=== PATIENT | female | born 1940 | race Caucasian/White ===

== ENCOUNTER 2017-04-22 07:28 | Outpatient (CLI) | payer MEDICARE, BC ==
--- NOTE | 2017-04-22 10:51 | PET ---
PET BRAIN IMAGING: HISTORY: Evaluate for Alzheimer's disease. Early onset. COMPARISON: None. TECHNIQUE: PET scanning with CT attenuation correction is performed from the base of the brain to the proximal t highs following the intravenous administration of F18-FDG. FINDINGS: There is decreased FDG localization involving the cerebrum, with areas of sparing in the left and rig ht precentral gyrus, as well as the left and right occipital lobes. The distribution of decreased FDG avidity is suspicious for Alzheimer's disease. IMPRESSION: PET imaging evidence for Alzheimer's disease. POS: JON
== END 2017-04-22 07:29 | disposition home or self-care (01) ==
LOC: PET 07:28
PROVIDERS: ATTEND Psychiatry & Neurology Neurology
DX: G30.0 Alzheimer's disease with early onset (principal)
CPT/HCPCS: 78608; A9552

== ENCOUNTER 2019-05-19 13:42 | Emergency (ER) | payer MEDICARE, BC ==
[2019-05-19 14:28] LABS: Bilirubin Negative (Negative); Blood, Urine Negative (Negative); Clarity Clear (Clear); Glucose, Urine (Dipstick) Normal (Negative); Leukocyte Negative Leu/uL (Negative); Nitrite Negative (Negative); Protein, Urine (Dipstick) 10 mg/dL (Neg-Trace); Urobilinogen Normal mg/dL (Less than 2)
[2019-05-19] MEDS ORDERED: Ketorolac Tromethamine 30 MG/ML VIAL ONE (14:46)
--- NOTE | 2019-05-19 15:08 | RAD ---
Exam: 3 views sacrum HISTORY: Pain x2 days FINDINGS: Sacral alar obscured by bowel gas. Grossly no sacral or bony pelvic abnormality. There is m ild bone demineralization. IMPRESSION: Limited evaluation due to bony mineralization and overlying bowel gas. Grossly no abnormality.
--- NOTE | 2019-05-19 15:12 | RAD ---
Exam: 3 views lumbar spine HISTORY: Low back pain x2 days FINDINGS: Mild bony mineralization. 5 lumbar type vertebra. Lumbar spine vertebral body height is maintained. No fracture. Vacuum disc ph enomenon in the distal thoracic spine Vacuum disc phenomenon phenomenon in the L4-L5 level. There are hypertrophic changes of posterior alejandra ments at L4-L5 and L5-S1. Moderate degenerative change in the L3-L4 level. IMPRESSION: Changes in the lower lumbar spine. No fracture. MRI if clinically warranted.
== END 2019-05-19 15:22 | disposition home or self-care (01) ==
LOC: ERS 13:42
DX: M54.5 Low back pain (principal); K59.00 Constipation, unspecified; I10 Essential (primary) hypertension; F03.90 Unspecified dementia, unspecified severity, without behavioral disturbance, psychotic disturbance, mood disturbance, and anxiety; Z79.82 Long term (current) use of aspirin; Z79.899 Other long term (current) drug therapy
CPT/HCPCS: 72100; 72220; 81003; 94760; J1885

== ENCOUNTER 2019-09-21 17:37 | Observation (INO) | payer MEDICARE, BC ==
[2019-09-21 19:27] LABS: #Basophils 0.1 thou/uL (0.0-0.2); #Eosinphils 0.2 thou/uL (0.0-0.7); #Lymphocytes 1.2 thou/uL (1.20-3.40); #Monocytes 1.1 thou/uL (0.11-0.59); #Neutrophils 5.9 thou/uL (1.40-6.50); %Basophils 0.7 % (0.0-1.0); %Eosinophils 2.5 % (0.0-10.0); %Lymphocytes 14.5 % (21.0-51.0); %Monocytes 12.6 % (0.0-10.0); %Neutrophils 69.8 % (42.0-75.0); Hemoglobin 11.4 g/dL (12.0-16.0); Mean Corpuscular HGB CONC 33.3 g/dL (32.0-36.0); Mean Corpuscular Hemoglobin 30.2 pg (27.0-31.0); Mean Corpuscular Volume 90.8 fL (78.0-98.0); Mean Platelet Volume 7.3 fL (7.4-10.4); Platelet Count 292 thou/uL (130-400); Red Blood Cell (RBC) Count 3.77 mill/uL (4.20-5.40); White Blood Cell (WBC) Count 8.5 thou/uL (4.8-10.8)
[2019-09-21 20:00] LABS: ALT (SGPT) 14 U/L (8-55); AST (SGOT) 20 U/L (5-34); Albumin 3.7 g/dL (3.4-4.8); Alkaline Phosphatase 71 U/L (40-110); Anion Gap 13 mmol/L (10-20); BUN (Urea Nitrogen) 15 mg/dL (9.8-20.1); Bilirubin, Total 0.3 mg/dL (0.2-1.2); Calc. Creatinine Clearance 0 mL/min (70-130); Calcium 9.1 mg/dL (7.8-10.44); Carbon Dioxide 28 mmol/L (23-31); Chloride 104 mmol/L (98-107); Estimated GFR-MDRD 48; Globulin 2.7 g/dL (2.4-3.5); Glucose 91 mg/dL (83-110); Potassium 3.4 mmol/L (3.5-5.1); Protein, Total 6.4 g/dL (6.0-8.3); Sodium 142 mmol/L (136-145)
--- NOTE | 2019-09-21 20:05 | RAD ---
PORTABLE CHEST: 09/21/19 HISTORY: Syncope, back pain. COMPARISON: 09/19/19 exam. Heart size appears borderline enlarged. The aorta is tortuous with atherosclerotic change. Lungs are clear of any infiltrative process. No signs of fracture. IMPRESSION: No active intrathoracic disease. POS: [facility]
--- NOTE | 2019-09-21 20:10 | CT ---
CT OF BRAIN PERFORMED WITHOUT CONTRAST ENHANCEMENT: 09/21/19 HISTORY: Altered mental status. There is generalized ventricular and sulcal prominence with decreased attenuation to the periventricu lar white matter consistent with chronic white matter change. There are no signs of intracerebral hem orrhage or extra-axial fluid collections. The mastoid air cells and visualized sinuses are clear. IMPRESSION: No acute intracranial abnormalities. POS: [facility]
[2019-09-21 21:59] LABS: Bacteria/HPF None Seen HPF (None Seen); Bilirubin Negative (Negative); Blood, Urine Trace (Negative); Clarity Turbid (Clear); Glucose, Urine (Dipstick) Normal (Negative); Leukocyte Negative Leu/uL (Negative); Mucous/LPF Rare LPF (<2+); Nitrite Negative (Negative); Protein, Urine (Dipstick) 30 mg/dL (Neg-Trace); RBC/HPF 0-3 HPF (0-3); Squamous Epithelial 0-3 HPF (0-3); Urobilinogen 3 mg/dL (Less than 2)
[2019-09-22] MEDS ORDERED: Acetaminophen 325 MG TAB PO PRN (00:04)
[2019-09-22 00:11] LABS: Troponin I 0.018 ng/mL (< 0.028)
--- NOTE | 2019-09-22 01:20 | HP ---
PRIMARY CARE PHYSICIAN: [facility] DIRECTOR: Sin Devlin MD CHIEF COMPLAINT: Altered mental status. HISTORY OF PRESENT ILLNESS: The H and P was taken from the patient's MPOA and daughter, Kelly via telephone secondary to patient's history of dementia. The patient is a 78-year-old female with past medical history significant for Alzheimer dementia, COPD, hypertension, hyperlipidemia, anxiety, and depression, who presents to the ER for the above complaint. The daughter reports that the patient appeared sluggish this afternoon stating that she was slumped over in her chair, not very active, and seemed to be more confused at times. The patient did not complain of any chest pain or SOB. She has been afebrile. No signs of abdominal pain or diarrhea. Blood pressure checked showed the SBP in the 80s and 90s, so she decided to call EMS. The daughter also reports that the patient had similar symptoms two days ago, in which the patient was actually taken to the [facility]. The patient had a full workup including labs, CT of the chest , UA, and EKG. She was also tested for COVID, which came back negative. The patient was discharged home with dehydration. The daughter reports that the patient did well for the next several days until this afternoon when she became sluggish and confused. When EMS arrived on the scene, the patient was normotensive with a heart rate of 56 with a regular respirations and she was afebrile. At the ER, vital signs were stable. Normal blood pressure, normal heart rate, normal respirations, afebrile. CT of the brain was negative for any acute process. Chest x-ray was negative for any acute process. Initial troponin was 0.011. EKG showed sinus kevin with PACs 47 beats per minute. Second EKG showed sinus arrhythmia, sinus kevin, heart rate of 59. No ST elevations. CMP and CBC were unremarkable. UA was unremarkable as well. The patient was given 1 L of normal saline. PAST MEDICAL HISTORY: 1. Alzheimer's. 2. COPD. 3. Hypertension. 4. Hyperlipidemia. 5. Anxiety and depression. PAST SURGICAL HISTORY: 1. Hysterectomy. 2. Appendectomy. SOCIAL HISTORY: The patient lives at home alone with 24 hour total care. She ambulates without any assistive devices, although it is recommended that she use a cane or roll walker. She was a former smoker, who quit in 2012. No alcohol intake. No illicit drug use. FAMILY HISTORY: Noncontributory for cardiac disease. ALLERGIES: CODEINE. HOME MEDICATIONS: Unable to confirm home medications at bedside or with daughter via telephone. REVIEW OF SYSTEMS: All review of systems are negative unless otherwise stated in the HPI. PHYSICAL EXAMINATION: VITAL SIGNS: Temperature 98.2, blood pressure 131/67, heart rate 62, respirations 18, and 97% on room air. 0/10 pain. CONSTITUTIONAL: The patient is alert and oriented to self, which is baseline per her daughter. She is nontoxic in appearance, in no acute distress. HEAD: Atraumatic and normocephalic. EYES: PERRLA. Extraocular muscles intact. ENT: Nares patent bilaterally. TMs intact bilaterally. Oropharynx is clear. Uvula midline. Dry mucous membranes. No oral lesions. NECK: Supple. Trachea is midline. No cervical tenderness. No cervical lymphadenopathy. No JVD. RESPIRATORY: Respirations are even and nonlabored. Clear to auscultation. No rhonchi, wheezes, or rales. HEART: Sinus bradycardia. 2/6 murmur. No rubs or gallops. ABDOMEN: Soft and nontender. Active bowel sounds. No guarding. No rigidity. No rebound tenderness. No abdominal bruit auscultated. BACK: No central spinous tenderness. No CVA tenderness. UPPER EXTREMITIES: Limited range of motion. Strength normal. Sensation intact. Palpable radial pulses. LOWER EXTREMITIES: Range of motion normal. Strength normal. Sensation intact. Palpable pedal pulses. No swelling. NEURO: The patient is alert and oriented to person. She is confused, which is baseline per her caregiver and daughter. She moves all extremities well. No focal deficits. Cranial nerves 2 through 12 intact. PSYCH: Alert and oriented to person. Normal affect. LABS AND DIAGNOSTICS: CT of the brain negative for any acute process. Chest x- ray negative for any acute process. Troponin 0.011. EKG; sinus kevin, PACs, and heart rate of 47. Sodium was 142, potassium 3.4, chloride 104, carbon dioxide 28, BUN 15, creatinine 1.10, glucose 91, calcium 9.1, total bilirubin 0.3, AST 20, ALT 14, alkaline phosphatase 71, and albumin 3.7. WBC 8.5, hemoglobin 11.4, hematocrit 34.2, and platelets 292. UA; 4 to 6 wbc's, trace blood, and 30 protein. IMPRESSION AND PLAN: 1. Altered mental status. We will admit the patient to the telemetry floor observation status. Expected length of stay less than two midnights. Prior to arrival that the patient had a reported low systolic blood pressure in the 80s and was sluggish. Upon presentation to the ER, blood pressure normal. Heart rate sinus bradycardia, in the 40s and 50s. CT of the brain was negative. Chest x-ray negative for any acute process. Initial troponin 0.011. We will continue to trend troponins. We will check TSH, fasting lipid, and Mag level. We will consult Cardiology. We will repeat EKG in the a.m. 2. Bradycardia. The patient's EKG showed sinus kevin, sinus arrhythmia, heart rate in the 47s to 50s. The patient's certified coding specialist is Dr. Devlin. I could not find a recent echocardiogram in the computer. We will consult Cardiology to determine course of care. 3. Hypotension. Reported the patient's blood pressure was low prior to arrival, systolic blood pressure in the 80s and 90s. The patient received 1 L normal saline in the ER. Currently, the patient on exam was normotensive. We will hold lisinopril for now. We will monitor blood pressure through the night. 4. Alzheimer's. The patient has family perform ADLs. The patient is oriented to person, which is her baseline. We will restart the patient's home Donepezil when reconciled by nursing. 5. Chronic obstructive pulmonary disease. The patient was a former heavy smoker , quit in 2012. Chest x-ray was negative. The patient is in no acute respiratory distress. We will continue to monitor and we will add p.r.n. as necessary. 6. Sequential compression devices for deep venous thrombosis prophylaxis. No pharmaco deep venous thrombosis prophylaxis. No gastrointestinal prophylaxis. The patient is a DNAR and POA is her daughter, Kelly, [phone]. 7. Discussed this case with Dr. Mon. Job ID: [id number] MTDD
[2019-09-22 02:55] LABS: #Basophils 0.1 thou/uL (0.0-0.2); #Eosinphils 0.3 thou/uL (0.0-0.7); #Lymphocytes 1.8 thou/uL (1.20-3.40); #Monocytes 0.9 thou/uL (0.11-0.59); #Neutrophils 5.4 thou/uL (1.40-6.50); %Basophils 0.9 % (0.0-1.0); %Eosinophils 3.3 % (0.0-10.0); %Lymphocytes 21.1 % (21.0-51.0); %Monocytes 10.8 % (0.0-10.0); %Neutrophils 63.9 % (42.0-75.0); Hemoglobin 11.4 g/dL (12.0-16.0); Mean Corpuscular HGB CONC 34.8 g/dL (32.0-36.0); Mean Corpuscular Hemoglobin 31.6 pg (27.0-31.0); Mean Corpuscular Volume 90.7 fL (78.0-98.0); Mean Platelet Volume 7.6 fL (7.4-10.4); Platelet Count 269 thou/uL (130-400); RBC Distribution Width 11.9 % (11.5-14.5); Red Blood Cell (RBC) Count 3.61 mill/uL (4.20-5.40); White Blood Cell (WBC) Count 8.4 thou/uL (4.8-10.8)
[2019-09-22 03:30] LABS: Anion Gap 13 mmol/L (10-20); BUN (Urea Nitrogen) 12 mg/dL (9.8-20.1); Calc. Creatinine Clearance 42 mL/min (70-130); Calcium 8.7 mg/dL (7.8-10.44); Carbon Dioxide 26 mmol/L (23-31); Cardiac Risk 2.9 (Less than 4.5); Chloride 108 mmol/L (98-107); Cholesterol 132 mg/dl (< 200 Desired); Estimated GFR-MDRD 70; Glucose 91 mg/dL (83-110); HDL Cholesterol 46 mg/dL (>60 Neg Risk); LDL Cholesterol, Calculated 74 mg/dL; Sodium 144 mmol/L (136-145); Triglycerides 61 mg/dL (Less than 150)
[2019-09-22 03:32] LABS: Potassium 2.9 mmol/L (3.5-5.1)
[2019-09-22] MEDS ORDERED: Potassium Chloride 20 MEQ TAB PO SCH ×2 (04:00→12:30)
[2019-09-22] MEDS: Aspirin 81 mg Enteric Coated Tablet PO SCH (08:22)
--- NOTE | 2019-09-22 09:51 | PDOC.HOSPP ---
- Subjective Encounter Date: 09/22/19 Encounter Time: 16:00 Subjective: Patient seen and examined for syncope. No new complaints. No overnight events - Objective Vital Signs & Weight: Vital Signs (12 hours) Temp Pulse Resp BP BP Pulse Ox 09/22/19 08:22 145/78 H 09/22/19 07:00 98.2 F 65 17 182/83 H 93 L 09/22/19 03:34 97.6 F 59 L 20 182/81 H 93 L 09/22/19 02:37 94 L 09/22/19 01:45 98.7 F 57 L 18 175/84 H 94 L 09/22/19 01:03 98.7 F 57 L 18 175/84 H 94 L Weight Weight 102 lb 3.2 oz I&O: 09/21/19 09/22/19 09/23/19 06:59 06:59 06:59 Intake Total 230 Balance 230 Result Diagrams: 09/22/19 02:43 09/22/19 10:14 Additional Labs: Laboratory Tests 09/22/19 09/22/19 02:43 10:14 Potassium 2.9 L* Magnesium 1.5 L Radiology Reviewed by me: Yes (CXR - neg) EKG Reviewed by me: Yes (Tele SR) Hospitalist ROS - Review of Systems ROS unobtainable: due to mental status - Medication Medications: Active Medications Generic Name Dose Route Start Last Admin Trade Name Freq PRN Reason Stop Dose Admin Aspirin 81 mg 09/22/19 09:00 09/22/19 08:22 Ecotrin PO 81 mg DAILY KEVIN Administration Sodium Chloride 10 ml 09/22/19 09:00 09/22/19 08:22 Flush - Normal Saline IVF 10 ml Q12HR KEVIN Administration - Exam General Appearance: NAD Neck: supple, no JVD, no thyromegaly, no lymphadenopathy Heart: RRR, no gallops, no rubs, normal peripheral pulses Respiratory: no wheezes, no rales Gastrointestinal: soft, non-tender, non-distended, normal bowel sounds Extremities: no cyanosis, no clubbing, no edema Extremities - other findings: no calf tenderness Neurological: no new deficit Hosp A/P - Plan DVT proph w/SCDs Toxic Metabolic Encephalopathy/Syncope - multifactorial Bradycardia Hypokalemia Hypomagnesemia HLD HTN Dementia Former smoker DJD Anxiety PLAN: Replace Potassium and Magnesium Await Cardio input Confirm home meds Low dose ASA Echo Cont Tele monitoring Recheck labs later today and in AM Monitor Orthostatic vitals
[2019-09-22] MEDS ORDERED: Lisinopril 10 MG TAB PO SCH (10:00)
[2019-09-22 10:50] LABS: Anion Gap 11 mmol/L (10-20); BUN (Urea Nitrogen) 10 mg/dL (9.8-20.1); Calc. Creatinine Clearance 45 mL/min (70-130); Calcium 9.2 mg/dL (7.8-10.44); Carbon Dioxide 31 mmol/L (23-31); Chloride 104 mmol/L (98-107); Estimated GFR-MDRD 75; Glucose 90 mg/dL (83-110); Magnesium 1.5 mg/dL (1.6-2.6); Potassium 3.5 mmol/L (3.5-5.1); Sodium 142 mmol/L (136-145)
[2019-09-22 11:33] LABS: Troponin I 0.028 ng/mL (< 0.028)
[2019-09-22] MEDS ORDERED: Magnesium Sulfate 4 GM in Sodium Chloride 0.9% 250 ML 250 ML IVPB SCH (12:30)
[2019-09-22 12:40] LABS: Phosphorus 2.9 mg/dL (2.3-4.7)
[2019-09-22] MEDS: Potassium Chloride 20 MEQ TAB PO SCH (16:54)
--- NOTE | 2019-09-22 17:13 | CON ---
DATE OF CONSULTATION: 09/22/2019 REASON FOR CONSULTATION: Bradycardia. HISTORY OF PRESENT ILLNESS: Ms. Rhoades is a 78-year-old white female, who comes to the hospital for altered mentation. She has Alzheimer disease and was brought in as she was sluggish and not responding. She had a similar episode about a week ago. She was taken to the [facility], and workup included negative CT of the chest, normal UA and EKG. She had a negative COVID test at that time as well. She was sent home with diagnosis of dehydration and given IV fluids. She was doing well until yesterday afternoon when she became confused. EMS arrived, and she was found to have normal blood pressure and a heart rate of 56, but she was still confused with no fevers and brought to the ER. Cardiology is being consulted as her heart rate has been anywhere from 47 to 59. During her monitoring with this bradycardia, she has been completely asymptomatic and actually even much more awake now. PAST MEDICAL HISTORY: 1. Alzheimer dementia. 2. COPD. 3. Hypertension. 4. Hyperlipidemia. 5. Anxiety and depression. PAST SURGICAL HISTORY: 1. Hysterectomy. 2. Appendectomy. SOCIAL HISTORY: She lives at home, but has 24-hour care at home. Former smoker, quit in 2012. No alcohol or drugs. FAMILY HISTORY: Noncontributory. ALLERGIES: CODEINE. OUTPATIENT MEDICATIONS: 1. Namenda 5 mg b.i.d. 2. Aricept 10 mg a day. 3. Zoloft 100 mg a day. 4. Zestril 10 mg a day. 5. Vitamin D3. 6. Seroquel 25 mg at bedtime. REVIEW OF SYSTEMS: A 12-point review of systems was done and was all negative unless stated in the history of present illness. PHYSICAL EXAMINATION: VITAL SIGNS: Temperature 98.1, pulse 59, respiratory rate 20, saturating 94% on room air, blood pressure 169/87. GENERAL: Awake, alert, and oriented to person, but not to place or time, in no distress. HEENT: Normocephalic and atraumatic. NECK: Supple. LUNGS: Clear. CARDIOVASCULAR: S1 and S2. No S3 or S4. There is a grade 2/6 systolic murmur in the right sternal border. ABDOMEN: Soft. Positive bowel sounds. EXTREMITIES: No edema. SKIN: Warm and dry. LABORATORY DATA: Laboratory work was reviewed. CBC remarkable only for hemoglobin of 11.4, hematocrit of 32, normal platelets, and normal white count. Chemistry with a potassium of 2.9 on arrival, up to 3.5 now. Rest of the CMP was normal. Magnesium was low at 1.5. Phosphorus was normal. Troponin was normal x3. BNP was 120. TSH was normal. Folate was 18. B12 was high at 1600. Triglycerides 61, cholesterol total of 132, LDL of 74, HDL of 46. UA was turbid with proteins, trace blood, 4 to 6 white cells, greater than 50 hyaline casts, but no bacteria. EKG was reviewed, sinus kevin. Telemetry has been reviewed. She has been sinus kevin with PACs, and she had a small run of nonsustained SVT versus atrial tachycardia. This was nonsustained, brief, and asymptomatic. CT of the brain showed no acute intracranial abnormalities. ASSESSMENT: 1. Sinus bradycardia, asymptomatic. 2. Nonsustained supraventricular tachycardia versus atrial tachycardia. Asymptomatic. 3. Altered mentation. 4. Alzheimer disease. PLAN: 1. With her sinus bradycardia, it will be prohibited to add any beta-blockers or calcium channel blockers to treat the nonsustained SVT/atrial tachycardia. On the other hand, this is asymptomatic and brief, so unlikely to be the cause of her altered mentation. 2. She does not have an indication for pacemaker at this time as she has not had any syncopal spells, and her heart rate was normal while she was still altered at home. So, her sinus kevin is unlikely to be the cause of her altered mentation. Thank you for letting us to participate in the care of your patient. We will get an echocardiogram. If this is unremarkable, we will sign off. Job ID: [id number]
[2019-09-22] MEDS ORDERED: Prevnar 13-Val Conj/PF 0.5 ML SYRINGE IM ONE (21:00)
[2019-09-23 05:04] LABS: Anion Gap 13 mmol/L (10-20); BUN (Urea Nitrogen) 11 mg/dL (9.8-20.1); Calc. Creatinine Clearance 45 mL/min (70-130); Calcium 9.2 mg/dL (7.8-10.44); Carbon Dioxide 26 mmol/L (23-31); Chloride 105 mmol/L (98-107); Estimated GFR-MDRD 75; Glucose 88 mg/dL (83-110); Magnesium 2.2 mg/dL (1.6-2.6); Potassium 3.5 mmol/L (3.5-5.1); Sodium 140 mmol/L (136-145)
[2019-09-23] MEDS: Potassium Chloride 20 MEQ TAB PO SCH ×3 (08:53→16:24)
[2019-09-23] MEDS: Aspirin 81 mg Enteric Coated Tablet PO SCH (08:53)
[2019-09-23] MEDS ORDERED: Lisinopril 10 MG TAB PO SCH (09:00)
--- NOTE | 2019-09-23 15:49 | PDOC.CPN ---
- Subjective Date: 09/23/19 Time: 15:43 Interval history: No new issues. More awake today. - Review of Systems General: denies: fever/chills, weight/appetite/sleep changes, night sweats, fatigue Respiratory: denies: cough, congestion, shortness of breath, exercise intolerance Cardiovascular: denies: chest pain, palpitation, edema, paroxysmal nocturnal dyspnea, orthopnea Gastrointestinal: denies: nausea, vomiting, diarrhea, constipation, abd pain, GI bleeding Musculoskeletal: denies: pain, tenderness, stiffness, swelling, arthritis/ arthralgias Neurological: denies: numbness, syncope, seizure, weakness - Objective Allergies/Adverse Reactions: Allergies Allergy/AdvReac Type Severity Reaction Status Date / Time codeine Allergy Verified 09/22/19 03:14 Visit Medications: Current Medications Acetaminophen (Tylenol) 650 mg PO Q4H PRN PRN Reason: Headache/Fever/Mild Pain (1-3) Aspirin (Ecotrin) 81 mg PO DAILY [facility] Last Admin: 09/23/19 08:53 Dose: 81 mg Potassium Chloride (K-Dur) 20 meq PO TID-WM [facility] Last Admin: 09/23/19 11:53 Dose: 20 meq Sodium Chloride (Flush - Normal Saline) 10 ml IVF Q12HR KEVIN Last Admin: 09/23/19 08:53 Dose: 10 ml Vital Signs & Weight: Vital Signs Temp Pulse Resp BP BP BP BP 09/23/19 15:27 98.5 F 61 16 150/70 H 09/23/19 11:56 98.3 F 68 16 120/59 L 09/23/19 08:35 98.2 F 63 16 154/76 H 164/82 H 164/77 H 09/23/19 04:47 97.7 F 61 18 179/86 H Pulse Ox 09/23/19 15:27 95 09/23/19 11:56 95 09/23/19 08:35 94 L 09/23/19 04:47 94 L Admit Weight 102 lb 3.2 oz Weight 102 lb 3.2 oz - Physical Exam General: no apparent distress HEENT: mucus membranes moist Neck: supple neck Cardiac: regular rate and rhythm, bradycardia Lungs: normal breath sounds Neuro: grossly intact Abdomen: active bowel sounds Extremities: 1+ LE edema Skin: clear Musculoskeletal: no pain - Labs Result Diagrams: 09/22/19 02:43 09/23/19 04:11 Troponin/CKMB Troponin I 0.028 ng/mL (< 0.028) 09/22/19 10:42 - Telemetry Sinus rhythms and dysrhythmias: sinus rhythm - Assessment/Plan Assessment/Plan: 1. Sinus bradycardia, asymptomatic. 2. Non sustained SVT, asymptomatic3. AMS, improving 4. Alzheimers PLAN: - CV stable. - Cannot do BB or CCB due to baseline bradycardia - Agree with replacing electrolytes. - Echo unremarkable. - From cardiac perspective may discharge at any time.
--- NOTE | 2019-09-23 19:07 | PDOC.HOSPP ---
- Subjective Encounter Date: 09/23/19 Encounter Time: 10:30 Subjective: Patient seen and examined for syncope. No CP/SOB. No new complaints. No overnight events - Objective Vital Signs & Weight: Vital Signs (12 hours) Temp Pulse Resp BP BP BP BP 09/23/19 15:27 98.5 F 61 16 150/70 H 09/23/19 11:56 98.3 F 68 16 120/59 L 09/23/19 08:35 98.2 F 63 16 154/76 H 164/82 H 164/77 H Pulse Ox 09/23/19 15:27 95 09/23/19 11:56 95 09/23/19 08:35 94 L Weight Admit Weight 102 lb 3.2 oz Weight 102 lb 3.2 oz I&O: 09/22/19 09/23/19 09/24/19 06:59 06:59 06:59 Intake Total 230 360 400 Output Total 240 275 Balance 230 120 125 Result Diagrams: 09/22/19 02:43 09/23/19 04:11 EKG Reviewed by me: Yes (Tele SB) Hospitalist ROS - Review of Systems Cardiovascular: denies: chest pain, palpitations, orthopnea, paroxysmal noc. dyspnea, edema, light headedness, other Gastrointestinal: denies: nausea, vomiting, abdominal pain, diarrhea, constipation, melena, hematochezia, other - Medication Medications: Active Medications Generic Name Dose Route Start Last Admin Trade Name Freq PRN Reason Stop Dose Admin Aspirin 81 mg 09/22/19 09:00 09/23/19 08:53 Ecotrin PO 81 mg DAILY KEVIN Administration Potassium Chloride 20 meq 09/22/19 17:00 09/23/19 16:24 K-Dur PO 20 meq TID-WM KEVIN Administration Sodium Chloride 10 ml 09/22/19 09:00 09/23/19 08:53 Flush - Normal Saline IVF 10 ml Q12HR KEVIN Administration - Exam General Appearance: NAD Heart: RRR, no gallops Respiratory: no wheezes, no ronchi Gastrointestinal: non-tender, non-distended, normal bowel sounds Extremities: no cyanosis, no clubbing Hosp A/P - Plan DVT proph w/SCDs Toxic Metabolic Encephalopathy/Syncope - multifactorial -improving Non sustained SVT -asymptomatic Bradycardia Hypokalemia Hypomagnesemia HLD HTN Dementia Former smoker DJD Anxiety PLAN: Replace Potassium Await Echo Resume Lisinopril Confirm home meds Cont ASA Resume selected home meds
[2019-09-23] MEDS: Lisinopril 10 MG TAB PO SCH (20:32)
[2019-09-23] MEDS: Cholecalciferol (Vitamin D3) 400 UNITS TAB PO SCH (20:32)
[2019-09-24] MEDS: Aspirin 81 mg Enteric Coated Tablet PO SCH (08:02)
[2019-09-24] MEDS: Potassium Chloride 20 MEQ TAB PO SCH ×2 (08:02→16:25)
[2019-09-24] MEDS: Donepezil HCl 10 MG TAB PO SCH (08:03)
--- NOTE | 2019-09-24 10:03 | PDOC.EVN ---
Event Note - Event Note Event Note: Daughter contact number [phone]
--- NOTE | 2019-09-24 10:46 | PDOC.HOSPP ---
- Subjective Encounter Date: 09/24/19 Encounter Time: 08:30 Subjective: Patient seen and examined for Bradycardia/Encephalopathy. No new complaints. No overnight events - Objective Vital Signs & Weight: Vital Signs (12 hours) Temp Pulse Resp BP Pulse Ox 09/24/19 07:25 98.7 F 69 18 142/87 H 93 L 09/24/19 03:59 99.5 F 89 20 119/57 L 97 09/24/19 00:00 55 L Weight Admit Weight 102 lb 3.2 oz Weight 95 lb 11.2 oz I&O: 09/23/19 09/24/19 09/25/19 06:59 06:59 06:59 Intake Total 360 520 Output Total 240 525 Balance 120 -5 Result Diagrams: 09/22/19 02:43 09/23/19 04:11 EKG Reviewed by me: Yes (Tele SB) Hospitalist ROS - Review of Systems Respiratory: denies: cough, dry, shortness of breath, hemoptysis, SOB with excertion, pleuritic pain, sputum, wheezing, other Cardiovascular: denies: chest pain, palpitations, orthopnea, paroxysmal noc. dyspnea, edema, light headedness, other - Medication Medications: Active Medications Generic Name Dose Route Start Last Admin Trade Name Freq PRN Reason Stop Dose Admin Aspirin 81 mg 09/22/19 09:00 09/24/19 08:02 Ecotrin PO 81 mg DAILY KEVIN Administration Cholecalciferol 400 units 09/23/19 21:00 09/23/19 20:32 Vitamin D PO 400 units HS KEVIN Administration Donepezil HCl 10 mg 09/24/19 09:00 09/24/19 08:03 Aricept PO 10 mg DAILY KEVIN Administration Lisinopril 10 mg 09/23/19 21:00 09/23/19 20:32 Zestril PO 10 mg HS KEVIN Administration Potassium Chloride 20 meq 09/22/19 17:00 09/24/19 08:02 K-Dur PO 20 meq TID-WM KEVIN Administration Quetiapine Fumarate 25 mg 09/23/19 21:00 09/23/19 20:32 Seroquel PO 25 mg HS KEVNI Administration Sertraline HCl 50 mg 09/24/19 09:00 09/24/19 08:02 Zoloft PO 50 mg DAILY KEVIN Administration Sodium Chloride 10 ml 09/22/19 09:00 09/24/19 08:03 Flush - Normal Saline IVF 10 ml Q12HR KEVIN Administration - Exam General Appearance: NAD Heart: RRR, no gallops Respiratory: no wheezes, no ronchi Gastrointestinal: non-tender, non-distended, normal bowel sounds Extremities: no cyanosis, no clubbing Neurological: no new deficit Hosp A/P - Plan DVT proph w/SCDs Toxic Metabolic Encephalopathy/Syncope - multifactorial -improving Non sustained SVT -asymptomatic -not a candidate for BB or CCB due to baseline bradycardia Bradycardia Hypokalemia/Hypomagnesemia -replaced HLD HTN Dementia Former smoker DJD Anxiety PLAN: Reduce Potassium to BID Cont ASA Stable for discharge Echo reviewed Cont Lisinopril Plan d/w daughter [phone] - Daughter not comfortable with patient staying alone Will consult CM for further options
--- NOTE | 2019-09-24 12:14 | EKG ---
Test Reason : Blood Pressure : / mmHG Vent. Rate : 059 BPM Atrial Rate : 059 BPM P-R Int : 154 ms QRS Dur : 070 ms QT Int : 426 ms P-R-T Axes : 071 -34 064 degrees QTc Int : 421 ms Sinus bradycardia with marked sinus arrhythmia Left axis deviation Anterior infarct , age undetermined Abnormal ECG Confirmed by LILLIANA STALLWORTH, GISSELLE ([id number]), editorial intern RUBEN ANDRADE ([id number]) on 09/24/2019 12:13:47 PM Referred By: Confirmed By:GISSELLE TIJERINA MD
--- NOTE | 2019-09-24 12:14 | EKG ---
Test Reason : Blood Pressure : / mmHG Vent. Rate : 047 BPM Atrial Rate : 047 BPM P-R Int : 168 ms QRS Dur : 076 ms QT Int : 474 ms P-R-T Axes : 113 -30 066 degrees QTc Int : 419 ms Sinus bradycardia with Premature supraventricular complexes Left axis deviation Pulmonary disease pattern Septal infarct , age undetermined Abnormal ECG Confirmed by LILLIANA STALLWORTH, GISSELLE ([id number]), photographic editor RUBEN ANDRADE ([id number]) on 09/24/2019 12:13:50 PM Referred By: Confirmed By:GISSELLE TIJERINA MD
--- NOTE | 2019-09-24 14:23 | PDOC.CPN ---
- Subjective Date: 09/24/19 Time: 14:22 Interval history: No new issues. No syncope, no angina. Still a little confused but alert. - Review of Systems ROS unobtainable: due to mental status - Objective Allergies/Adverse Reactions: Allergies Allergy/AdvReac Type Severity Reaction Status Date / Time codeine Allergy Verified 09/22/19 03:14 Visit Medications: Current Medications Acetaminophen (Tylenol) 650 mg PO Q4H PRN PRN Reason: Headache/Fever/Mild Pain (1-3) Aspirin (Ecotrin) 81 mg PO DAILY [facility] Last Admin: 09/24/19 08:02 Dose: 81 mg Cholecalciferol (Vitamin D) 400 units PO HS [facility] Last Admin: 09/23/19 20:32 Dose: 400 units Donepezil HCl (Aricept) 10 mg PO DAILY [facility] Last Admin: 09/24/19 08:03 Dose: 10 mg Lisinopril (Zestril) 10 mg PO [facility] Last Admin: 09/23/19 20:32 Dose: 10 mg Potassium Chloride (K-Dur) 20 meq PO BID-[facility] Quetiapine Fumarate (Seroquel) 25 mg PO HS [facility] Last Admin: 09/23/19 20:32 Dose: 25 mg Sertraline HCl (Zoloft) 50 mg PO DAILY [facility] Last Admin: 09/24/19 08:02 Dose: 50 mg Sodium Chloride (Flush - Normal Saline) 10 ml IVF Q12HR [facility] Last Admin: 09/24/19 08:03 Dose: 10 ml Vital Signs & Weight: Vital Signs Temp Pulse Resp BP Pulse Ox 09/24/19 11:17 99.1 F 75 16 144/88 H 93 L 09/24/19 07:25 98.7 F 69 18 142/87 H 93 L 09/24/19 03:59 99.5 F 89 20 119/57 L 97 Admit Weight 102 lb 3.2 oz Weight 95 lb 11.2 oz - Physical Exam General: no apparent distress HEENT: normocephaly Neck: supple neck Cardiac: regular rate and rhythm Lungs: normal breath sounds Neuro: grossly intact Abdomen: active bowel sounds Extremities: no edema Skin: clear Musculoskeletal: no pain - Labs Result Diagrams: 09/22/19 02:43 09/23/19 04:11 Troponin/CKMB Troponin I 0.028 ng/mL (< 0.028) 09/22/19 10:42 - Telemetry Sinus rhythms and dysrhythmias: sinus rhythm - Assessment/Plan Assessment/Plan: 1. Sinus bradycardia, asymptomatic. 2. Non sustained SVT, asymptomatic 3. AMS, improving 4. Alzheimers PLAN: - CV stable. - Cannot do BB or CCB due to baseline bradycardia - No new recs.
[2019-09-24] MEDS: Cholecalciferol (Vitamin D3) 400 UNITS TAB PO SCH (20:02)
[2019-09-24] MEDS: Lisinopril 10 MG TAB PO SCH (20:02)
[2019-09-25] MEDS: Potassium Chloride 20 MEQ TAB PO SCH ×2 (10:15→18:16)
[2019-09-25] MEDS: Donepezil HCl 10 MG TAB PO SCH (10:15)
[2019-09-25] MEDS: Aspirin 81 mg Enteric Coated Tablet PO SCH (10:15)
--- NOTE | 2019-09-25 13:36 | PDOC.CPN ---
- Subjective Date: 09/25/19 Time: 13:35 Interval history: No new issues. - Review of Systems ROS unobtainable: due to mental status - Objective Allergies/Adverse Reactions: Allergies Allergy/AdvReac Type Severity Reaction Status Date / Time codeine Allergy Verified 09/22/19 03:14 Visit Medications: Current Medications Acetaminophen (Tylenol) 650 mg PO Q4H PRN PRN Reason: Headache/Fever/Mild Pain (1-3) Aspirin (Ecotrin) 81 mg PO DAILY [facility] Last Admin: 09/25/19 10:15 Dose: 81 mg Cholecalciferol (Vitamin D) 400 units PO [facility] Last Admin: 09/24/19 20:02 Dose: 400 units Donepezil HCl (Aricept) 10 mg PO DAILY [facility] Last Admin: 09/25/19 10:15 Dose: 10 mg Lisinopril (Zestril) 10 mg PO [facility] Last Admin: 09/24/19 20:02 Dose: 10 mg Potassium Chloride (K-Dur) 20 meq PO BID-[facility] Last Admin: 09/25/19 10:15 Dose: 20 meq Quetiapine Fumarate (Seroquel) 25 mg PO [facility] Last Admin: 09/24/19 20:02 Dose: 25 mg Sertraline HCl (Zoloft) 50 mg PO DAILY [facility] Last Admin: 09/25/19 10:15 Dose: 50 mg Sodium Chloride (Flush - Normal Saline) 10 ml IVF Q12HR [facility] Last Admin: 09/25/19 10:15 Dose: 10 ml Vital Signs & Weight: Vital Signs Temp Pulse Resp BP BP Pulse Ox 09/25/19 11:35 97.9 F 74 22 H 121/75 91 L 09/25/19 10:00 98.1 F 77 22 H 118/65 94 L 09/25/19 04:00 98.7 F 73 16 125/71 92 L Admit Weight 102 lb 3.2 oz Weight 96 lb 14.4 oz - Physical Exam General: no apparent distress HEENT: mucus membranes moist Neck: supple neck Cardiac: regular rate and rhythm Lungs: normal breath sounds Neuro: no lateralizing findings Abdomen: active bowel sounds Extremities: no edema Skin: clear Musculoskeletal: no pain - Labs Result Diagrams: 09/22/19 02:43 09/23/19 04:11 Troponin/CKMB Troponin I 0.028 ng/mL (< 0.028) 09/22/19 10:42 - Telemetry Sinus rhythms and dysrhythmias: sinus rhythm - Assessment/Plan Assessment/Plan: 1. Sinus bradycardia, asymptomatic. Currently HR in the 70's. 2. Non sustained SVT, asymptomatic 3. AMS, improving 4. Alzheimers PLAN: - CV stable. - Cannot do BB or CCB due to baseline bradycardia - May discharge any time from cardiac perspective. - Will sign off. Please call with any questions. -
[2019-09-25 14:16] VITALS: BMI 18.9
[2019-09-25] MEDS: Cholecalciferol (Vitamin D3) 400 UNITS TAB PO SCH (20:28)
[2019-09-25] MEDS: Lisinopril 10 MG TAB PO SCH (20:28)
--- NOTE | 2019-09-25 23:32 | PDOC.HOSPP ---
- Subjective Encounter Date: 09/25/19 Encounter Time: 11:00 Subjective: Patient seen and examined for AMS. No new complaints. No overnight events - Objective Vital Signs & Weight: Vital Signs (12 hours) Temp Pulse Pulse Pulse Resp BP BP 09/25/19 19:37 98.7 F 79 16 09/25/19 14:52 97.5 F L 81 23 H 09/25/19 13:17 69 83 137/72 134/77 09/25/19 11:35 97.9 F 74 22 H BP Pulse Ox 09/25/19 19:37 165/74 H 92 L 09/25/19 14:52 156/77 H 93 L 09/25/19 13:17 09/25/19 11:35 121/75 91 L Weight Admit Weight 102 lb 3.2 oz Weight 96 lb 14.4 oz I&O: 09/24/19 09/25/19 09/26/19 06:59 06:59 06:59 Intake Total 520 600 240 Output Total 525 600 Balance -5 0 240 Result Diagrams: 09/22/19 02:43 09/23/19 04:11 EKG Reviewed by me: Yes (Tele SR) Hospitalist ROS - Review of Systems Respiratory: denies: cough, dry, shortness of breath, hemoptysis, SOB with excertion, pleuritic pain, sputum, wheezing, other Cardiovascular: denies: chest pain, palpitations, orthopnea, paroxysmal noc. dyspnea, edema, light headedness, other - Medication Medications: Active Medications Generic Name Dose Route Start Last Admin Trade Name Freq PRN Reason Stop Dose Admin Aspirin 81 mg 09/22/19 09:00 09/25/19 10:15 Ecotrin PO 81 mg DAILY KEVIN Administration Cholecalciferol 400 units 09/23/19 21:00 09/25/19 20:28 Vitamin D PO 400 units HS KEVIN Administration Donepezil HCl 10 mg 09/24/19 09:00 09/25/19 10:15 Aricept PO 10 mg DAILY KEVIN Administration Lisinopril 10 mg 09/23/19 21:00 09/25/19 20:28 Zestril PO 10 mg HS KEVIN Administration Potassium Chloride 20 meq 09/24/19 17:00 09/25/19 18:16 K-Dur PO 20 meq BID-[facility] KEVIN Administration Quetiapine Fumarate 25 mg 09/23/19 21:00 09/25/19 20:28 Seroquel PO 25 mg HS KEVIN Administration Sertraline HCl 50 mg 09/24/19 09:00 09/25/19 10:15 Zoloft PO 50 mg DAILY KEVIN Administration Sodium Chloride 10 ml 09/22/19 09:00 09/25/19 20:29 Flush - Normal Saline IVF 10 ml Q12HR KEVIN Administration - Exam General Appearance: NAD Heart: RRR, no gallops Respiratory: no wheezes, no ronchi Gastrointestinal: non-tender, non-distended, normal bowel sounds Extremities: no cyanosis, no clubbing Neurological: no new deficit Hosp A/P - Plan Toxic Metabolic Encephalopathy/Syncope - multifactorial -improving Non sustained SVT -asymptomatic -not a candidate for BB or CCB due to baseline bradycardia Bradycardia Hypokalemia/Hypomagnesemia -replaced HLD HTN Dementia Former smoker DJD Anxiety PLAN: Cont ASA Cont Lisinopril Await Rehab placement - Stable for discharge
[2019-09-26] MEDS: Aspirin 81 mg Enteric Coated Tablet PO SCH (08:30)
[2019-09-26] MEDS: Donepezil HCl 10 MG TAB PO SCH (08:30)
[2019-09-26] MEDS: Potassium Chloride 20 MEQ TAB PO SCH (08:31)
[2019-09-26 15:38] VITALS: BP 100/55; TEMP 97.6
--- NOTE | 2019-09-26 19:40 | DIS ---
DATE OF ADMISSION: 09/21/2019 DATE OF DISCHARGE: 09/26/2019 DISCHARGE DISPOSITION: Inpatient rehab. FOLLOWUP: 1. Follow up with primary care physician, Dr. Paz in 1 week. 2. Follow up with Cardiology, Dr. Peter, as scheduled. CODE STATUS: Do not resuscitate. DISCHARGE MEDICATIONS: Same as admission medication. 1. Aspirin 81 mg daily. 2. Zoloft 100 mg daily. 3. Seroquel 25 mg at bedtime. 4. Namenda 5 mg b.i.d. 5. Lisinopril 10 mg daily. 6. Aricept 10 mg daily. 7. Vitamin D3 10 mcg at bedtime. INPATIENT ASSISTANT COACH: Cardiology, Dr. Peter. The patient was seen and examined on the day of discharge. Denies any new complaints. No chest pain, shortness of breath, or palpitations reported. Please note that the patient was discharged on September 25, 2019. However, the patient was discharged to inpatient rehabilitation today. BRIEF HOSPITAL COURSE: The patient is a 78-year-old female with dementia, presented to the emergency room with altered mentation along with syncope. She was found to have sinus bradycardia with heart rate in 40s to 50s. The patient was evaluated by Cardiology. She was found to have electrolyte abnormalities with potassium of 2.9 and magnesium of 1.5, which were replaced. She also had several episodes of nonsustained supraventricular tachycardia. Please note that due to baseline bradycardia, she is not a candidate for beta-blockers or calcium channel akila. Due to progressive decline and family request, she was sent to inpatient rehabilitation. Please note that the patient was stable for discharge on the September 23; however, the rehab evaluation was pending. The patient appears stable for discharge. FINAL DIAGNOSES: 1. Toxic metabolic encephalopathy/syncope, multifactorial. 2. Nonsustained supraventricular tachycardia. The patient is asymptomatic and not a candidate for beta-blockers or calcium channel akila due to baseline bradycardia. 3. Chronic bradycardia. 4. Hypokalemia. 5. Hypomagnesemia. 6. Hypertension. 7. Hyperlipidemia. 8. Dementia. 9. Former smoker. 10. Anxiety. 11. Degenerative joint disease. Job ID: [id number]
== END 2019-09-26 16:22 ==
LOC: ERS 17:37 → 2NO 23:33
PROVIDERS: ADMIT Internal Medicine; ATTEND Internal Medicine
DX: G92 Toxic encephalopathy (principal); I47.1 Supraventricular tachycardia; R00.1 Bradycardia, unspecified; G30.9 Alzheimer's disease, unspecified; F02.80 Dementia in other diseases classified elsewhere, unspecified severity, without behavioral disturbance, psychotic disturbance, mood disturbance, and anxiety; J44.9 Chronic obstructive pulmonary disease, unspecified; I10 Essential (primary) hypertension; E78.5 Hyperlipidemia, unspecified; F41.9 Anxiety disorder, unspecified; F32.9 Major depressive disorder, single episode, unspecified; I95.9 Hypotension, unspecified; E87.6 Hypokalemia; E83.42 Hypomagnesemia; M19.90 Unspecified osteoarthritis, unspecified site; Z87.891 Personal history of nicotine dependence; Z79.82 Long term (current) use of aspirin; Z79.899 Other long term (current) drug therapy; Z88.5 Allergy status to narcotic agent; Z66 Do not resuscitate
CPT/HCPCS: 51701; 70450; 71045; 80048 ×3; 80053; 80061; 82607; 82746; 83735 ×2; 83880; 84100; 84443; 84484 ×4; 85025 ×2; 93005 ×2; 93306; 94760 ×2; 96361; 96365; 97116; 97139 ×6; 97530 ×3; 97535; 99285; G0378 ×6; 36415; 81003; 81015; 93010; 96360; J3475; J7050

== ENCOUNTER 2020-09-04 19:34 | Emergency (ER) | payer MEDICARE, BC | END 2020-09-04 23:22 | LOC: ERS 19:34 | DX: S00.03XA Contusion of scalp, initial encounter (principal); I10 Essential (primary) hypertension; E78.5 Hyperlipidemia, unspecified; D72.829 Elevated white blood cell count, unspecified; G30.9 Alzheimer's disease, unspecified; F02.80 Dementia in other diseases classified elsewhere, unspecified severity, without behavioral disturbance, psychotic disturbance, mood disturbance, and anxiety; G92 Toxic encephalopathy; R01.1 Cardiac murmur, unspecified; Z79.82 Long term (current) use of aspirin; Z79.899 Other long term (current) drug therapy; W18.30XA Fall on same level, unspecified, initial encounter | CPT/HCPCS: 70450; 72125; 93005 ==

== ENCOUNTER 2020-12-05 20:51 | Inpatient (IN) | payer MEDICARE, BC ==
[2020-12-05 21:55] LABS: Bacteria/HPF 4+ HPF (None Seen); Bilirubin 1+ (Negative); Blood, Urine 2+ (Negative); Clarity Turbid (Clear); Glucose, Urine (Dipstick) Normal (Negative); Ketone, Urine Negative (Negative); Leukocyte 250 Leu/uL (Negative); Nitrite Negative (Negative); Protein, Urine (Dipstick) 100 mg/dL (Neg-Trace); RBC/HPF 0-3 HPF (0-3); Specific Gravity, Urine 1.019 (1.002-1.036); Squamous Epithelial 0-3 HPF (0-3); pH, Urine 5.5 (5.0-9.0)
[2020-12-05] MEDS ORDERED: cefTRIAXone\\ROCEPHIN 2 GM VIAL ONE (22:35)
[2020-12-05 22:37] LABS: Hemoglobin 15.5 g/dL (12.0-16.0); Mean Corpuscular HGB CONC 31.7 g/dL (32.0-36.0); Mean Corpuscular Hemoglobin 29.9 pg (27.0-31.0); Mean Corpuscular Volume 94.5 fL (78.0-98.0); Mean Platelet Volume 8.6 fL (7.4-10.4); Platelet Count 212 thou/uL (130-400); RBC Distribution Width 12.7 % (11.5-14.5); Red Blood Cell (RBC) Count 5.19 mill/uL (4.20-5.40); White Blood Cell (WBC) Count 21.9 thou/uL (4.8-10.8)
[2020-12-05 22:45] LABS: ALT (SGPT) 26 U/L (8-55); AST (SGOT) 44 U/L (5-34); Albumin 4.2 g/dL (3.4-4.8); Alkaline Phosphatase 77 U/L (40-110); Anion Gap 22 mmol/L (10-20); BUN (Urea Nitrogen) 29 mg/dL (9.8-20.1); Bilirubin, Total 0.6 mg/dL (0.2-1.2); Calc. Creatinine Clearance 0 mL/min (70-130); Calcium 10.3 mg/dL (7.8-10.44); Carbon Dioxide 21 mmol/L (23-31); Chloride 104 mmol/L (98-107); Globulin 3.1 g/dL (2.4-3.5); Glucose 134 mg/dL (83-110); Potassium 4.6 mmol/L (3.5-5.1); Protein, Total 7.3 g/dL (5.8-8.1); Sodium 142 mmol/L (136-145)
[2020-12-05 22:52] LABS: Band 30 % (5-11); Lymphocytes 2 % (21-51); MDiff Complete? YES; Monocytes 7 % (0-10); Neutrophil 61 % (42-75)
[2020-12-06] MEDS ORDERED: Ondansetron PF 4 MG/2 ML Vial IVP PRN (00:23)
[2020-12-06] MEDS ORDERED: Acetaminophen 325 MG TAB PO PRN (00:23)
[2020-12-06] MEDS: Sodium Chloride 0.9% 1,000 ML IV SCH ×2 (01:48→16:22)
[2020-12-06] MEDS ORDERED: Cefepime 1 GM VIAL ONE (03:20)
[2020-12-06] MEDS: Cefepime 1 GM in Sodium Chloride 0.9% 100 ML IVPB SCH ×2 (03:25→16:22)
[2020-12-06 04:25] LABS: SARS-CoV-2 NAA Rapid Test Not Detected (NotDetected)
[2020-12-06 05:11] LABS: Hemoglobin 14.2 g/dL (12.0-16.0); Mean Corpuscular HGB CONC 31.2 g/dL (32.0-36.0); Mean Corpuscular Hemoglobin 29.6 pg (27.0-31.0); Mean Corpuscular Volume 94.7 fL (78.0-98.0); Mean Platelet Volume 8.7 fL (7.4-10.4); Platelet Count 211 thou/uL (130-400); RBC Distribution Width 12.9 % (11.5-14.5); Red Blood Cell (RBC) Count 4.81 mill/uL (4.20-5.40)
[2020-12-06 05:32] LABS: ALT (SGPT) 23 U/L (8-55); AST (SGOT) 43 U/L (5-34); Albumin 3.4 g/dL (3.4-4.8); Alkaline Phosphatase 56 U/L (40-110); Anion Gap 14 mmol/L (10-20); BUN (Urea Nitrogen) 33 mg/dL (9.8-20.1); BUN/Creatinine Ratio 25.98; Bilirubin, Total 0.4 mg/dL (0.2-1.2); Calc. Creatinine Clearance 0 mL/min (70-130); Calcium 9.3 mg/dL (7.8-10.44); Carbon Dioxide 22 mmol/L (23-31); Chloride 109 mmol/L (98-107); Globulin 2.9 g/dL (2.4-3.5); Glucose 133 mg/dL (83-110); Potassium 4.4 mmol/L (3.5-5.1); Protein, Total 6.3 g/dL (5.8-8.1); Sodium 141 mmol/L (136-145)
[2020-12-06 05:47] LABS: Band 31 % (5-11); Lymphocytes 6 % (21-51); MDiff Complete? YES; Monocytes 10 % (0-10); Neutrophil 53 % (42-75)
[2020-12-06] MEDS: Donepezil HCl 10 MG TAB PO SCH (09:38)
[2020-12-06] MEDS ORDERED: Enoxaparin Sodium 30 MG/0.3 ML SYRINGE ONE (09:49)
[2020-12-06] MEDS: Enoxaparin Sodium 30 MG/0.3 ML SYRINGE SC SCH (10:11)
[2020-12-06 17:05] VITALS: BMI 16.4
[2020-12-07] MEDS: Cefepime 1 GM in Sodium Chloride 0.9% 100 ML IVPB SCH (01:56)
[2020-12-07] MEDS: Sodium Chloride 0.9% 1,000 ML IV SCH (05:45)
[2020-12-07 06:02] LABS: Hemoglobin 11.9 g/dL (12.0-16.0); Mean Corpuscular HGB CONC 32.6 g/dL (32.0-36.0); Mean Corpuscular Hemoglobin 31.1 pg (27.0-31.0); Mean Corpuscular Volume 95.4 fL (78.0-98.0); Mean Platelet Volume 8.5 fL (7.4-10.4); Platelet Count 195 thou/uL (130-400); RBC Distribution Width 12.7 % (11.5-14.5); Red Blood Cell (RBC) Count 3.83 mill/uL (4.20-5.40)
[2020-12-07 06:14] LABS: Anion Gap 11 mmol/L (10-20); BUN (Urea Nitrogen) 25 mg/dL (9.8-20.1); Calc. Creatinine Clearance 37 mL/min (70-130); Calcium 8.9 mg/dL (7.8-10.44); Carbon Dioxide 22 mmol/L (23-31); Chloride 113 mmol/L (98-107); Glucose 83 mg/dL (83-110); Potassium 3.6 mmol/L (3.5-5.1); Sodium 142 mmol/L (136-145)
[2020-12-07 06:47] LABS: Band 13 % (5-11); Lymphocytes 7 % (21-51); MDiff Complete? YES; Metamyelocyte 1 % (0-0); Monocytes 6 % (0-10); Neutrophil 72 % (42-75); Platelet Morphology Comment Appears Adequate; RBC Morphology Normal; Reactive Lymphocytes 1 % (0-10)
[2020-12-07 09:08] LABS: Phosphorus 2.1 mg/dL (2.3-4.7)
[2020-12-07] MEDS: Enoxaparin Sodium 30 MG/0.3 ML SYRINGE SC SCH (09:13)
[2020-12-07] MEDS: cefTRIAXone\\ROCEPHIN 1 GM in Sodium Chloride 0.9% 100 ML IVPB SCH (09:13)
[2020-12-07] MEDS: Saccharomyces boulardii 250 MG CAP PO SCH ×2 (09:14→09:54)
[2020-12-07] MEDS: Donepezil HCl 10 MG TAB PO SCH ×2 (09:14→09:54)
[2020-12-07] MEDS ORDERED: Potassium Phosphate 15 MMOL in Sodium Chloride 0.9% 250 ML 250 ML IVPB SCH (09:30)
[2020-12-07] MEDS ORDERED: D5W-AA 4.25% with LYTES 1,000 ML BAG IV SCH ×2 (12:15→13:00)
[2020-12-07] MEDS: D5W-AA 4.25% with LYTES 1,000 ML IV SCH (14:34)
[2020-12-08] MEDS: D5W-AA 4.25% with LYTES 1,000 ML IV SCH ×2 (01:05→17:16)
[2020-12-08 06:37] LABS: Hemoglobin 11.4 g/dL (12.0-16.0); Mean Corpuscular HGB CONC 33.3 g/dL (32.0-36.0); Mean Corpuscular Hemoglobin 31.1 pg (27.0-31.0); Mean Corpuscular Volume 93.3 fL (78.0-98.0); Mean Platelet Volume 8.6 fL (7.4-10.4); Platelet Count 186 thou/uL (130-400); RBC Distribution Width 12.4 % (11.5-14.5); Red Blood Cell (RBC) Count 3.67 mill/uL (4.20-5.40); White Blood Cell (WBC) Count 14.3 thou/uL (4.8-10.8)
[2020-12-08 06:38] LABS: Lactic Acid 0.9 mmol/L (0.5-2.2)
[2020-12-08 06:50] LABS: ALT (SGPT) 21 U/L (8-55); AST (SGOT) 39 U/L (5-34); Alkaline Phosphatase 57 U/L (40-110); Anion Gap 12 mmol/L (10-20); BUN (Urea Nitrogen) 21 mg/dL (9.8-20.1); Bilirubin, Total 0.6 mg/dL (0.2-1.2); Calc. Creatinine Clearance 46 mL/min (70-130); Calcium 8.8 mg/dL (7.8-10.44); Carbon Dioxide 24 mmol/L (23-31); Chloride 106 mmol/L (98-107); Globulin 2.3 g/dL (2.4-3.5); Glucose 102 mg/dL (83-110); Magnesium 1.9 mg/dL (1.6-2.6); Potassium 3.5 mmol/L (3.5-5.1); Protein, Total 5.3 g/dL (5.8-8.1); Sodium 138 mmol/L (136-145)
[2020-12-08 07:02] LABS: Phosphorus 1.9 mg/dL (2.3-4.7)
[2020-12-08 07:41] LABS: Band 19 % (5-11); Eosinophils 2 % (0-10); Lymphocytes 13 % (21-51); MDiff Complete? YES; Monocytes 5 % (0-10); Neutrophil 61 % (42-75)
[2020-12-08] MEDS ORDERED: Magnesium 2 GM/50 ML 2 GM in Premix Bag 1 BAG IVPB SCH (08:15)
[2020-12-08] MEDS ORDERED: Potassium Phosphate 30 MMOL in Sodium Chloride 0.9% 500 ML IVPB SCH (08:15)
[2020-12-08] MEDS: Donepezil HCl 10 MG TAB PO SCH (09:03)
[2020-12-08] MEDS: Enoxaparin Sodium 30 MG/0.3 ML SYRINGE SC SCH (09:03)
[2020-12-08] MEDS: cefTRIAXone\\ROCEPHIN 1 GM in Sodium Chloride 0.9% 100 ML IVPB SCH (09:03)
[2020-12-08] MEDS: Saccharomyces boulardii 250 MG CAP PO SCH (09:03)
[2020-12-08] MEDS ORDERED: hydrALAZINE 25 MG TAB PO PRN (09:53)
[2020-12-08] MEDS ORDERED: Lisinopril 10 MG TAB PO SCH (10:00)
[2020-12-08] MEDS ORDERED: Cholecalciferol (Vitamin D3) 400 UNITS TAB PO SCH (21:00)
[2020-12-09] MEDS: D5W-AA 4.25% with LYTES 1,000 ML IV SCH (04:51)
[2020-12-09 08:29] LABS: Hemoglobin 11.1 g/dL (12.0-16.0); Mean Corpuscular Hemoglobin 28.9 pg (27.0-31.0); Mean Corpuscular Volume 93.1 fL (78.0-98.0); Mean Platelet Volume 8.1 fL (7.4-10.4); Platelet Count 219 thou/uL (130-400); RBC Distribution Width 12.3 % (11.5-14.5); Red Blood Cell (RBC) Count 3.86 mill/uL (4.20-5.40); White Blood Cell (WBC) Count 11.9 thou/uL (4.8-10.8)
[2020-12-09 08:43] LABS: Anion Gap 11 mmol/L (10-20); BUN (Urea Nitrogen) 23 mg/dL (9.8-20.1); Calc. Creatinine Clearance 49 mL/min (70-130); Calcium 8.1 mg/dL (7.8-10.44); Carbon Dioxide 23 mmol/L (23-31); Chloride 103 mmol/L (98-107); Glucose 110 mg/dL (83-110); Phosphorus 3.2 mg/dL (2.3-4.7); Potassium 4.1 mmol/L (3.5-5.1); Sodium 133 mmol/L (136-145)
[2020-12-09] MEDS ORDERED: Aspirin Chewable 81 MG TAB PO SCH (09:00)
[2020-12-09] MEDS ORDERED: Cyanocobalamin (Vitamin B-12) 1,000 MCG TAB PO SCH (09:00)
[2020-12-09] MEDS ORDERED: Lisinopril 10 MG TAB PO SCH (09:00)
[2020-12-09] MEDS ORDERED: Venlafaxine HCl XR 75 MG CAP PO SCH (09:00)
[2020-12-09] MEDS ORDERED: Multivit, Therapeutic 1 TAB PO SCH (09:00)
[2020-12-09] MEDS: Enoxaparin Sodium 30 MG/0.3 ML SYRINGE SC SCH (09:40)
[2020-12-09] MEDS: Saccharomyces boulardii 250 MG CAP PO SCH (09:41)
[2020-12-09 10:59] LABS: Band 15 % (5-11); Lymphocytes 6 % (21-51); MDiff Complete? YES; Monocytes 12 % (0-10); Neutrophil 67 % (42-75); Platelet Morphology Comment Appears Adequate; RBC Morphology Normal
[2020-12-09] MEDS ORDERED: Bacitracin Zinc Ointment 30 gm TUBE ONE (15:14)
[2020-12-09] MEDS ORDERED: Bupivacaine PF 0.5% 30 ML VIAL ONE (15:14)
[2020-12-09] MEDS ORDERED: Betamet Acet/Betamet Na Ph 30 MG/5 ML VIAL ONE (15:14)
[2020-12-09 17:26] VITALS: BP 127/65; TEMP 98.3
== END 2020-12-09 18:29 | disposition home health service (06) | DRG 871 ==
LOC: ERS 20:51 → ERHOLD 12-06 00:23 → T4-B 12-06 15:27
PROVIDERS: ADMIT Internal Medicine; ATTEND Internal Medicine
DX: A41.51 Sepsis due to Escherichia coli [E. coli] (principal); G92 Toxic encephalopathy; N39.0 Urinary tract infection, site not specified; Z20.822 Contact with and (suspected) exposure to COVID-19; N17.9 Acute kidney failure, unspecified; E87.2 Acidosis; E44.0 Moderate protein-calorie malnutrition; Z68.1 Body mass index [BMI] 19.9 or less, adult; F05 Delirium due to known physiological condition; R65.20 Severe sepsis without septic shock; N18.2 Chronic kidney disease, stage 2 (mild); E83.39 Other disorders of phosphorus metabolism; N28.1 Cyst of kidney, acquired; I12.9 Hypertensive chronic kidney disease with stage 1 through stage 4 chronic kidney disease, or unspecified chronic kidney disease; E78.5 Hyperlipidemia, unspecified; G30.9 Alzheimer's disease, unspecified; F41.9 Anxiety disorder, unspecified; F32.9 Major depressive disorder, single episode, unspecified; J44.9 Chronic obstructive pulmonary disease, unspecified; R19.7 Diarrhea, unspecified; F02.80 Dementia in other diseases classified elsewhere, unspecified severity, without behavioral disturbance, psychotic disturbance, mood disturbance, and anxiety; E83.42 Hypomagnesemia; E87.6 Hypokalemia; Z79.899 Other long term (current) drug therapy; Z79.82 Long term (current) use of aspirin; Z90.49 Acquired absence of other specified parts of digestive tract; Z90.710 Acquired absence of both cervix and uterus; Z88.5 Allergy status to narcotic agent
CPT/HCPCS: 0240U; 36415; 36416; 70450; 71045; 76770; 80048; 80053; 80069; 81003; 81015; 83605; 83735; 84100; 84443; 84484; 85025; 87040; 87077; 87086; 87186; 87324; 87449; 93005; 94760; J0692; J0696; J0702; J1650; J3475; J3490; J7030; J7050; S0020

== ENCOUNTER 2021-01-22 11:22 | Emergency (ER) | payer MEDICARE, BC ==
[2021-01-22 12:22] LABS: #Eosinphils 0.2 thou/uL (0.0-0.7); #Lymphocytes 1.2 thou/uL (1.20-3.40); #Monocytes 0.8 thou/uL (0.11-0.59); #Neutrophils 5.8 thou/uL (1.40-6.50); %Basophils 0.2 % (0.0-1.0); %Eosinophils 2.3 % (0.0-10.0); %Lymphocytes 14.8 % (21.0-51.0); %Monocytes 9.5 % (0.0-10.0); %Neutrophils 73.2 % (42.0-75.0); Hemoglobin 12.2 g/dL (12.0-16.0); Mean Corpuscular HGB CONC 33.6 g/dL (32.0-36.0); Mean Corpuscular Hemoglobin 31.6 pg (27.0-31.0); Platelet Count 213 thou/uL (130-400); RBC Distribution Width 13.7 % (11.5-14.5); Red Blood Cell (RBC) Count 3.86 mill/uL (4.20-5.40)
[2021-01-22 12:34] LABS: ALT (SGPT) 8 U/L (8-55); AST (SGOT) 15 U/L (5-34); Albumin 3.5 g/dL (3.4-4.8); Alkaline Phosphatase 59 U/L (40-110); Anion Gap 16 mmol/L (10-20); BUN (Urea Nitrogen) 14 mg/dL (9.8-20.1); Bilirubin, Total 0.3 mg/dL (0.2-1.2); Calc. Creatinine Clearance 0 mL/min (70-130); Carbon Dioxide 21 mmol/L (23-31); Chloride 106 mmol/L (98-107); Globulin 2.8 g/dL (2.4-3.5); Glucose 88 mg/dL (83-110); Lipase 33 U/L (8-78); Magnesium 1.9 mg/dL (1.6-2.6); Potassium 3.9 mmol/L (3.5-5.1); Protein, Total 6.3 g/dL (5.8-8.1); Sodium 139 mmol/L (136-145)
[2021-01-22 14:41] LABS: Bilirubin Negative (Negative); Blood, Urine Negative (Negative); Clarity Clear (Clear); Glucose, Urine (Dipstick) Normal (Negative); Ketone, Urine Negative (Negative); Leukocyte Negative Leu/uL (Negative); Nitrite Negative (Negative); Protein, Urine (Dipstick) Negative (Neg-Trace); Specific Gravity, Urine 1.028 (1.002-1.036); Urobilinogen Normal mg/dL (Less than 2); pH, Urine 7.5 (5.0-9.0)
[2021-01-22 15:35] LABS: Lactic Acid 2.1 mmol/L (0.5-2.2)
== END 2021-01-22 18:33 | disposition home or self-care (01) ==
LOC: ERS 11:22
DX: E86.0 Dehydration (principal); I49.1 Atrial premature depolarization; I10 Essential (primary) hypertension; E78.5 Hyperlipidemia, unspecified; G30.9 Alzheimer's disease, unspecified; F02.80 Dementia in other diseases classified elsewhere, unspecified severity, without behavioral disturbance, psychotic disturbance, mood disturbance, and anxiety; G92.8 Other toxic encephalopathy; Z79.82 Long term (current) use of aspirin; Z79.899 Other long term (current) drug therapy
CPT/HCPCS: 36415; 51701; 74177; 80053; 81003; 83605; 83690; 83735; 83880; 84484; 85025; 87040; 93005

== ENCOUNTER 2021-05-07 08:04 | Emergency (ER) | payer MEDICARE, BC ==
[2021-05-07 09:21] LABS: #Eosinphils 0.1 thou/uL (0.0-0.7); #Monocytes 0.9 thou/uL (0.11-0.59); #Neutrophils 8.5 thou/uL (1.40-6.50); %Basophils 0.2 % (0.0-1.0); %Eosinophils 1.1 % (0.0-10.0); %Lymphocytes 9.6 % (21.0-51.0); %Monocytes 8.9 % (0.0-10.0); %Neutrophils 80.2 % (42.0-75.0); Mean Corpuscular HGB CONC 32.8 g/dL (32.0-36.0); Mean Corpuscular Hemoglobin 30.1 pg (27.0-31.0); Mean Corpuscular Volume 91.8 fL (78.0-98.0); Mean Platelet Volume 7.4 fL (7.4-10.4); Platelet Count 230 thou/uL (130-400); RBC Distribution Width 13.7 % (11.5-14.5); Red Blood Cell (RBC) Count 3.98 mill/uL (4.20-5.40); White Blood Cell (WBC) Count 10.5 thou/uL (4.8-10.8)
[2021-05-07 09:40] LABS: Lactic Acid 1.3 mmol/L (0.5-2.2)
[2021-05-07 09:45] LABS: ALT (SGPT) 7 U/L (8-55); AST (SGOT) 18 U/L (5-34); Albumin 3.5 g/dL (3.4-4.8); Alkaline Phosphatase 61 U/L (40-110); Anion Gap 12 mmol/L (10-20); BUN (Urea Nitrogen) 19 mg/dL (9.8-20.1); Bilirubin, Total 0.6 mg/dL (0.2-1.2); CK (CPK) 221 U/L (29-168); Calc. Creatinine Clearance 0 mL/min (70-130); Calcium 9.5 mg/dL (7.8-10.44); Carbon Dioxide 22 mmol/L (23-31); Chloride 105 mmol/L (98-107); Globulin 3.3 g/dL (2.4-3.5); Glucose 90 mg/dL (83-110); Potassium 4.3 mmol/L (3.5-5.1); Protein, Total 6.8 g/dL (5.8-8.1); Sodium 135 mmol/L (136-145)
[2021-05-07 10:00] LABS: Troponin I Less than 0.010 ng/mL (< 0.028)
[2021-05-07 10:23] LABS: Bilirubin Negative (Negative); Blood, Urine Negative (Negative); Glucose, Urine (Dipstick) Negative (Negative); Ketone, Urine Negative (Negative); Leukocyte Trace (Negative); Nitrite Negative (Negative); Protein, Urine (Dipstick) Negative (Neg-Trace); Specific Gravity, Urine 1.015 (1.005-1.030); Urobilinogen 0.2 mg/dL (Less than 2)
[2021-05-07 10:29] LABS: Clarity Clear (Clear)
[2021-05-07 10:30] LABS: Bacteria/HPF Rare-Few HPF (None Seen); RBC/HPF None Seen HPF (0-3)
== END 2021-05-07 14:43 | disposition home or self-care (01) ==
LOC: ERS 08:04
DX: S51.012A Laceration without foreign body of left elbow, initial encounter (principal); S00.33XA Contusion of nose, initial encounter; I10 Essential (primary) hypertension; E78.5 Hyperlipidemia, unspecified; G30.9 Alzheimer's disease, unspecified; F02.80 Dementia in other diseases classified elsewhere, unspecified severity, without behavioral disturbance, psychotic disturbance, mood disturbance, and anxiety; Z79.899 Other long term (current) drug therapy; Z79.82 Long term (current) use of aspirin; W06.XXXA Fall from bed, initial encounter; Y92.129 Unspecified place in nursing home as the place of occurrence of the external cause
CPT/HCPCS: 51701; 70450; 70486; 71045; 72125; 80053; 81003; 81015; 82550; 83605; 84484; 85025; 87077; 87086; 87186; 93005